=== PATIENT | female | born 1960 | race African-American/Black ===

== ENCOUNTER 2017-09-04 15:43 | Emergency (ER) | payer BC ==
[~2017-09-04] VITALS: Ht 180.3 cm; Wt 95.7 kg
[~2017-09-04 15:43] MED LIST: ESCI10TA PO; HYDR12.5 PO; LABE200T28 PO; POTA10CA14 PO; RANI-281 PO; [UNRECOGNIZED DRUG - CODE] PO
[2017-09-04 16:06] VITALS: BP_SYST 152
[2017-09-04 17:25] VITALS: BP_SYST 153
== END 2017-09-04 17:49 | disposition home or self-care (01) ==
LOC: SED 15:43
DX: I10 Essential (primary) hypertension (principal); K21.9 Gastro-esophageal reflux disease without esophagitis; E78.00 Pure hypercholesterolemia, unspecified
CPT/HCPCS: 99281

== ENCOUNTER 2018-03-05 17:42 | Emergency (ER) | payer BC ==
[~2018-03-05] VITALS: Ht 177.8 cm; Wt 84.4 kg
[2018-03-05 18:00] VITALS: BP_SYST 156
[2018-03-05 18:45] LABS: BILIRUBIN,URINE NEGATIVE (NEGATIVE); BLOOD, URINE 2+ (NEGATIVE); CLARITY/URINE CLEAR (CLEAR); COLOR,URINE YELLOW (YELLOW); GLUCOSE,URINE NEGATIVE (NEGATIVE); KETONES,URINE NEGATIVE (NEGATIVE); LEUKOCYTE ESTERASE ,URINE NEGATIVE (NEGATIVE); NITRITE, URINE NEGATIVE (NEGATIVE); PROTEIN URINE NEGATIVE (NEGATIVE); UROBILINOGEN,URINE 0.2 (0.2-1.0)
[2018-03-05] MEDS ORDERED: KETOROLAC TROMETHAMINE 60 MG/2 ML VIAL IM ONE (18:45)
[2018-03-05] MEDS ORDERED: DIAZEPAM 10 MG/2 ML DISP.SYRIN IM ONE (18:45)
[2018-03-05] MEDS ORDERED: CARISOPRODOL 350 MG TABLET PO ONE (18:45)
[2018-03-05 18:49] LABS: BACTERIA,URINE FEW /HPF (None Seen); WBC,URINE 0-3 /HPF (0-3)
[2018-03-05] MEDS ORDERED: NACL 0.9% 1,000 ML IV ONE (19:15)
[2018-03-05 19:23] LABS: BASOPHILS # (AUTO) 0.1 K/uL (0.0-0.2); BASOPHILS % (AUTO) 1.1 % (0.0-2.0); EOSINOPHILS # (AUTO) 0.1 K/uL (0.0-0.4); EOSINOPHILS % (AUTO) 1.6 % (0.0-4.0); HEMATOCRIT 39.4 % (36-48); HEMOGLOBIN 12.7 g/dL (12.0-16.0); LYMPHOCYTES # (AUTO) 1.5 K/uL (1.0-5.5); MEAN CORPUSCULAR HEMOGLOBIN 31 pg (27-31); MEAN CORPUSCULAR HGB CONC 32 % (32-36); MEAN CORPUSCULAR VOLUME 95 fL (79.0-98.0); MONOCYTES # (AUTO) 0.5 K/uL (0.0-1.0); MONOCYTES % (AUTO) 10.8 % (1.7-9.3); NEUTROPHILS # (AUTO) 2.8 K/uL (1.8-7.7); NEUTROPHILS % (AUTO) 56.5 % (40.0-70.0); PLATELET COUNT (AUTO) 359 K/uL (130-430); RED BLOOD CELL COUNT(AUTO) 4.14 MIL/uL (4.2-6.2); RED CELL DISTRIBUTION WIDTH 13.1 % (9.0-15.0)
[2018-03-05 19:36] LABS: CALCIUM 9.8 mg/dL (8.4-11.0); CREATININE 0.78 mg/dL (0.55-1.30); POTASSIUM 3.5 mmol/L (3.5-5.1)
[2018-03-05 19:41] LABS: ALBUMIN 4.1 g/dL (3.4-4.8); TOTAL BILIRUBIN 0.6 mg/dL (0.0-1.0)
[2018-03-05 20:34] VITALS: BP_SYST 117
== END 2018-03-05 20:34 | disposition home or self-care (01) ==
LOC: SED 17:42
DX: M54.16 Radiculopathy, lumbar region (principal); K21.9 Gastro-esophageal reflux disease without esophagitis; I10 Essential (primary) hypertension; E78.00 Pure hypercholesterolemia, unspecified; Z90.710 Acquired absence of both cervix and uterus
CPT/HCPCS: 36415; 74176; 80053; 81000; 85025; 96372; 99285; J1885; J7030

== ENCOUNTER 2018-04-24 16:37 | Emergency (ER) | payer BC ==
[~2018-04-24] VITALS: Ht 177.8 cm; Wt 84.4 kg
[2018-04-24 16:42] VITALS: BP_SYST 184
--- NOTE | 2018-04-24 16:48 | NUR ---
Patient to ER bed 7 to gown for evaluation. Side rails up. Report given to Courtney TRINIDAD.
--- NOTE | 2018-04-24 16:51 | NUR ---
Pt brought by daughter,A&Ox4,pt presents to ER with R shoulder pain,limited ROM, after she was using the rowin machine, skin pink and warm, cap refill <3, VS WNL, respirations even and unlabored.
--- NOTE | 2018-04-24 16:52 | NUR ---
Kiya Martinez HAND SOLE SEWER at bedside examining patient
[2018-04-24] MEDS ORDERED: fentaNYL CITRATE/PF 100 MCG/2 ML AMP IM ONE (17:00)
[2018-04-24] MEDS ORDERED: DIPHENHYDRAMINE INJ 50 MG/ML VIAL IM ONE (17:00)
[2018-04-24] MEDS ORDERED: KETOROLAC TROMETHAMINE 60 MG/2 ML VIAL IM ONE (18:15)
--- NOTE | 2018-04-24 18:48 | NUR ---
Patient and pt's mother given written and verbal discharge instructions and verbalizes understanding. ER MD discussed with patient and pt's mother the results and treatment provided. Patient in stable condition. ID arm band removed. Rx of Tramadol,Soma and Motrin given. Patient and pt's mother educated on pain management and to follow up with PMD. Pain Scale 0/10 . Opportunity for questions provided and answered. Medication side effect fact sheet provided.
[2018-04-24 18:50] VITALS: BP_SYST 146
== END 2018-04-24 18:50 | disposition home or self-care (01) ==
LOC: SED 16:37
DX: M25.511 Pain in right shoulder (principal); I10 Essential (primary) hypertension; K21.9 Gastro-esophageal reflux disease without esophagitis; E78.00 Pure hypercholesterolemia, unspecified; Z90.710 Acquired absence of both cervix and uterus; Z79.899 Other long term (current) drug therapy
CPT/HCPCS: 73030; 96372; 99283; J1200; J1885; J3010